=== PATIENT | male | born 1975 | race Caucasian/White ===

== ENCOUNTER 2017-12-04 17:30 | Emergency (ER) | payer MEDICAID, SELFPAY ==
--- NOTE | 2017-12-04 17:47 | XR_ITS ---
XR knee RT 3V Ordering Physician: Alix Cortez Patient Age: 42 years: Male HISTORY: ITS.REASON: PAIN TECHNIQUE: 3 views right knee COMPARISON :May 2016 FINDINGS Degenerative changes evident at the right knee with tricompartmental marginal osteophytes most evident about the medial joint margin. Minimal spurring about the patellofemoral joint and lateral compartment. I Also some hypertrophic spurring inferior patellofemoral joint on lateral view.- From both the patella and femur Joint space fairly well maintained with only Borderline narrowing medial compartment on this nonweightbearing film. No fracture evident. Joint effusion evident at suprapatellar bursa. Moderate size. IMPRESSION: No fracture. Moderate size joint effusion suprapatella bursa. Developing degenerative arthritic changes right knee
[2017-12-04 17:51] VITALS: BP 166/102; PULSE 77; RESP 20; TEMP 36.9; O2SAT 98; BMI 34.2
--- NOTE | 2017-12-04 18:36 | HMH.EDUTC ---
[facility] – [place] Disposition Clinical Impression: Knee pain, acute Qualifiers: Laterality: right Qualified Code(s): M25.561 - Pain in right knee Disposition: Home, Self-Care Condition on Discharge: Good Instructions: DI for Acute Pain -- Adult Additional Instructions: Tylenol as needed for pain Keep splint in place Ice 20 minutes removed may repeat for comfort Follow-up with primary care Leave splint in place until seen by ortho Take Naprosyn and prednisone on a full stomach Prescriptions: Naproxen 250 mg PO Q12 PRN 7 Days #14 tab PRN Reason: Breakthru Moderate Pain predniSONE [Deltasone 20mg tablet] 20 mg PO BID 5 Days #10 tab Referrals: Tito Núñez MD [Primary Care Provider] - Satish Romero MD [Staff Physician] - 12/05/17 Time of Disposition: 18:50 Medical Decision Making - Loco Inquiry Pt receiving controlled substance: No Vital Signs: 12/04/17 17:51 Temperature 98.4 F Temperature Source Temporal Artery Scan Pulse Rate [Brachial] 77 Respiratory Rate 20 Blood Pressure [Right Arm] 166/102 Blood Pressure Mean [Right Arm] 123 Blood Pressure Source [Right Arm] Automatic Cuff Blood Pressure Position [Right Arm] Sitting 02 Sat by Pulse Oximetry 98 Oxygen Delivery Method Room Air Orders (Tests/Meds): ORDERS Category Date Time Status XR knee RT 3V Stat Exams 12/04/17 17:47 Taken [facility] [place] HPI - General Chief complaint: PAIN Stated complaint: R leg pain Time Seen by Provider: 12/04/17 18:37 Mode of Arrival: Ambulatory Source of Information: Patient Limitations: No Limitations Description of Symptoms (Recalled from Triage Doc. by RN): PAIN BEHIND RT KNEE AND SWOLLEN HEENT Symptoms (Recalled from RN notes): No Resp Symptoms (Recalled from RN notes): No Skin Symptoms (Recalled from RN notes): No MS Symptoms (Recalled from RN notes): Yes Functional Status (Recalled from RN notes): NA - History of Present Illness Provider Complaint: 2-year-old male presents today for right knee pain. Patient reports no injury. Patient states he was standing outside talking with neighbors and when in went to bed and at 2:00 woke up with knee pain and unable to bend knee - Related Data Previous Rx's Medication Instructions Recorded Naproxen 250 mg PO Q12 PRN 7 Days #14 tab 12/04/17 predniSONE [Deltasone 20mg 20 mg PO BID 5 Days #10 tab 12/04/17 tablet] Allergies Allergy/AdvReac Type Severity Reaction Status Date / Time No Known Allergies Allergy Unverified 09/12/17 14:49 - Worker's Comp Is this a Worker's Comp case?: No [facility] History I have reviewed the patient's past medical history: Yes - Social History Alcohol Intake: never - Psychiatric History Expresses thoughts of harming self/others: None Suicide Plan Description: No Plan ROS Obtained: Yes All systems reviewed & no additional complaints - Constitutional Constitutional: Reports system reviewed and no additional complaints, except as docu, Denies chills, Denies fever(s), Denies weakness - Eyes Eyes: Reports system reviewed and no additional complaints, except as docu - ENT Ears, Nose, Mouth, and Throat: Reports system reviewed and no additional complaints, except as docu - Cardiovascular Cardiovascular: Reports system reviewed and no additional complaints, except as docu - Respiratory Respiratory: Yes system reviewed and no additional complaints, except as docu - Gastrointestinal Gastrointestingal: Reports: system reviewed and no additional complaints, except as docu - Musculoskeletal Musculoskeletal: Reports system reviewed and no additional complaints, except as docu, Reports as per HPI, Reports joint pain, Reports joint stiffness, Reports joint swelling - Integumentary/Breasts Skin/Breast: Reports system reviewed and no additional complaints, except as docu - Neurologic Neurologic: Reports system reviewed and no additional complaints, except as docu - Endocrine Endocrine: Reports system reviewed
--- NOTE | 2017-12-04 18:40 | ED_ITS ---
[facility] [place] Clinical Impression: Knee pain, acute Qualifiers: Laterality: right Qualified Code(s): M25.561 - Pain in right knee Disposition: Home, Self-Care Condition on Discharge: Good Instructions: DI for Acute Pain -- Adult Additional Instructions: Tylenol as needed for pain Keep splint in place Ice 20 minutes removed may repeat for comfort Follow-up with primary care Leave splint in place until seen by ortho Take Naprosyn and prednisone on a full stomach Prescriptions: Naproxen 250 mg PO Q12 PRN 7 Days #14 tab PRN Reason: Breakthru Moderate Pain predniSONE [Deltasone 20mg tablet] 20 mg PO BID 5 Days #10 tab Referrals: Tito Núñez MD [Primary Care Provider] - Satish Romero MD [Staff Physician] - 12/05/17 Time of Disposition: 18:50 Medical Decision Making - Loco Inquiry Pt receiving controlled substance: No Vital Signs: 12/04/17 17:51 Temperature 98.4 F Temperature Source Temporal Artery Scan Pulse Rate [Brachial] 77 Respiratory Rate 20 Blood Pressure [Right Arm] 166/102 Blood Pressure Mean [Right Arm] 123 Blood Pressure Source [Right Arm] Automatic Cuff Blood Pressure Position [Right Arm] Sitting 02 Sat by Pulse Oximetry 98 Oxygen Delivery Method Room Air Orders (Tests/Meds): ORDERS Category Date Time Status XR knee RT 3V Stat Exams 12/04/17 17:47 Taken [facility] [place] - General Chief complaint: PAIN Stated complaint: R leg pain Time Seen by Provider: 12/04/17 18:37 Mode of Arrival: Ambulatory Source of Information: Patient Limitations: No Limitations Description of Symptoms (Recalled from Triage Doc. by RN): PAIN BEHIND RT KNEE AND SWOLLEN HEENT Symptoms (Recalled from RN notes): No Resp Symptoms (Recalled from RN notes): No Skin Symptoms (Recalled from RN notes): No MS Symptoms (Recalled from RN notes): Yes Functional Status (Recalled from RN notes): NA - History of Present Illness Provider Complaint: 2-year-old male presents today for right knee pain. Patient reports no injury. Patient states he was standing outside talking with neighbors and when in went to bed and at 2:00 woke up with knee pain and unable to bend knee - Related Data Previous Rx's Medication Instructions Recorded Naproxen 250 mg PO Q12 PRN 7 Days #14 tab 12/04/17 predniSONE [Deltasone 20mg 20 mg PO BID 5 Days #10 tab 12/04/17 tablet] Allergies Allergy/AdvReac Type Severity Reaction Status Date / Time No Known Allergies Allergy Unverified 09/12/17 14:49 - Worker's Comp Is this a Worker's Comp case?: No H History I have reviewed the patient's past medical history: Yes - Social History Alcohol Intake: never - Psychiatric History Expresses thoughts of harming self/others: None Suicide Plan Description: No Plan ROS Obtained: Yes All systems reviewed & no additional complaints - Constitutional Constitutional: Reports system reviewed and no additional complaints, except as docu, Denies chills, Denies fever(s), Denies weakness - Eyes Eyes: Reports system reviewed and no additional complaints, except as docu - ENT Ears, Nose, Mouth, and Throat: Reports system reviewed and no additional complaints, except as docu - Cardiovascular Cardiovascular: Reports system reviewed and no additional complaints, except
[2017-12-04 18:53] VITALS: BP 166/102; PULSE 77; RESP 20; TEMP 36.9; O2SAT 98
== END 2017-12-04 18:55 | disposition home or self-care (01) ==
PROVIDERS: Emergency Provider Nurse Practitioner Family; PCP Emergency Medicine
DX: M25.561 Pain in right knee (principal)
CPT/HCPCS: 29505; 73562; 99203

== ENCOUNTER → 2017-12-28 16:05 | Outpatient (CLI) | payer MEDICAID, SELFPAY ==
--- NOTE | 2017-12-28 16:07 | MR_ITS ---
MR knee RT wo con Ordering Physician: Satish Romero MD Patient Age: 42 years: Male HISTORY: ITS.REASON: RT knee osteoarthritis Symptoms 2 weeks. Pain inferior to patella. Swelling at knee. Unable to bend knee. Unable straighten knee. Knee instability. TECHNIQUE: Multiplanar multisequence imaging 1.5T MR Mild motion on the submitted sequences slightly degrades images COMPARISON : Plain films of the knee from 12/04/2017 FINDINGS Mild motion on the several of the submitted sequences slightly degrades image detail & resolution Medial meniscus suspect fraying and fibrillation of free margin posterior horn medial meniscus slightly truncated appearance on sagittal image 1718. Minor increased signal within the superior base of posterior body medial meniscus on coronal images. It question degenerative signal change versus minor tear here base. Equivocal feature On stepping back, with overview, there appears to be in ill-defined masslike area overlying the medial joint, there an unusual almost masslike area anterior anterior to the anterior horn medial meniscus. In fact viewing sagittal image 19 there seems to be some amorphous a decreased T1 signal & increased T2 signal (but not simple clear fluid signal) large area overlying the lateral compartment. In fact this area extends for up to nearly 3 cm height is seen on sagittal images 16, 17, coronal image 11, 10 and suspect this may be some form of a debris-filled meniscal cyst or similar process given that it blends in with the base of the anterior horn of medial meniscus.. Otherwise it could reflect some type synovial or fibro-cellular mass. Clinical correlation required. It may warrant follow-up postcontrast MRI study... Or possibly focal ultrasound may be of benefit.. Please feel free to discuss with us The cartilage at medial compartment is actually fairly well-maintained. No osteochondral defect. Lateral compartment. May be some chondral thinning anteriorly, with minimal spurring seen here far anterior aspect tibial plateau seen on sagittal images associated. With this small 9 mm cystic area, extending just anterior to this spur.. Reflecting either joint fluid or less likely small meniscal cyst The Lateral Meniscus otherwise shows no definitive surface tear only upper normal signal at its anterior base. Large joint effusion most evident at suprapatellar bursa. The. No definitive loose body is identified within this joint effusion Patellofemoral relationships appear satisfactory with cartilage fairly well maintained at patellofemoral joint. Developing tricompartmental marginal included osteophytes at patellofemoral joint. Most evident extending lateral from patella.. Slightly more evident marginal osteophytes also noted at from margins of medial and lateral compartment . ACL intact. PCL intact Small nonspecific subchondral cystic area beneath the PCL insertion. Medial collateral ligament intact. The lateral collateral ligament I believe is intact with upper normal signal at its femoral insertion. Quadriceps tendon seems to be intact as does the patellar tendon.. No fracture evident.. No bone edema. No remarkable reactive bone changes about the There is mild fluid signal overlying the patellar tendon. Could reflect p dependent fluid or versus some mild prepatellar inflammation. IMPRESSION 1. Large joint effusion 2. Tricompartmental marginal osteophytes reflecting early degenerative changes. However cartilage at medial & lateral compartment, as well as patellofemoral joint seen to be fairly well-maintained overall.: .... Marginal osteophytes about margin of patellofemoral joint, but cartilage at this joint seems to be fairly well-maintained. ..... Only note mild chondral thinning far anteriorly at lateral t
== END ==
PROVIDERS: PCP Emergency Medicine; Visit Provider Orthopaedic Surgery
DX: M17.11 Unilateral primary osteoarthritis, right knee (principal)
CPT/HCPCS: 73721

== ENCOUNTER 2021-01-07 09:07 | Emergency (ER) | payer OTHER, SELFPAY ==
--- NOTE | 2021-01-07 09:20 | XR_ITS ---
PROCEDURE: XR KNEE RT 3V CLINICAL INDICATION: injury Posttraumatic pain COMPARISON: CR [id number] KNEE-3 VIEWS-RT from 06/18/2016 CR [id number] XR knee RT 3V from 12/04/2017 CR XR KNEE RT 3V from 06/30/2019 FINDINGS: No fracture or dislocation. No lytic or blastic change. There is normal mineralization. There are tricompartmental osteoarthritic changes [id number] in nature. 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 Other findings:None. IMPRESSION: Osteoarthritis with knee joint effusion Dictated by: Kiel Ji MD 01/07/2021 10:15 Kiel Ji MD in [place] 01/07/2021 10:15
--- NOTE | 2021-01-07 09:21 | PC.NURSE ---
radiology notified of xray order
[2021-01-07 09:23] VITALS: BP 171/90; PULSE 82; RESP 16; TEMP 36.7; O2SAT 98; BMI 30.3
--- NOTE | 2021-01-07 10:32 | HMH.EDUTC ---
[facility] [place] Clinical Impression: Instability of right knee joint Strain of right knee Qualifiers: Encounter type: initial encounter Qualified Code(s): S86.911A - Strain of unspecified muscle(s) and tendon(s) at lower leg level, right leg, initial encounter Right knee pain Qualifiers: Chronicity: acute Qualified Code(s): M25.561 - Pain in right knee Disposition: Home, Self-Care Condition on Discharge: Good Instructions: How to Use Crutches, Knee Sprain, DI for Knee Sprain, How to Use a Knee Immobilizer Additional Instructions: Rest the extremity, apply ice for 15 minutes as tolerated three or four times per day, Wear the jordan wrap for compression, Elevate the extremity as tolerated while you are resting. Take ibuprofen for pain. I sent in a prescription to your pharmacy. Follow up with Dr. Rojo (orthopedics). Sometimes there can be fractures that don't show up well on the first set of x-rays. So, you should follow up if you continue to have symptoms. I put in a referral but you need to call his office and schedule an appointment. Follow up with your regular doctor. GO TO THE ER FOR ANY WORSENING SYMPTOMS Prescriptions: Ibuprofen [Ibuprofen 600mg Tablet] 600 mg PO Q6HP PRN #30 tab PRN Reason: Mild Pain Transmission Status: Received by [id number] Referrals: Saeid Goldberg MD [Primary Care Provider] - Brandon Rojo MD [Staff Physician] - Time of Disposition: 10:40 Medical Decision Making - Medical Records Medical records reviewed: No: I reviewed the patient's medical records. - Loco Inquiry Pt receiving controlled substance: No Vital Signs: 01/07/21 09:23 01/07/21 10:40 Temperature 98.1 F 98.1 F Temperature Source Oral Oral Pulse Rate 82 Pulse Rate [Right Radial] 82 Respiratory Rate 16 16 Blood Pressure 171/90 H Blood Pressure [Right Arm] 171/90 H Blood Pressure Mean [Right Arm] 117 02 Sat by Pulse Oximetry 98 Oxygen Delivery Method Room Air Room Air Orders (Tests/Meds): ED MEDICATIONS Discontinued Medications Generic Name Dose Route Start Last Admin Trade Name Freq PRN Reason Stop Dose Admin Ibuprofen 800 mg 01/07/21 10:24 01/07/21 10:25 Ibuprofen 400 Mg Tablet PO 01/07/21 10:25 800 mg ONCE ONE Administration - Radiology Data #1 Image(s): Knee Image Reviewed: Yes I reviewed the patient's radiology results Preliminary Findings: Abnormal, No Fracture Seen PROCEDURE: XR KNEE RT 3V CLINICAL INDICATION: injury Posttraumatic pain COMPARISON: CR [id number] KNEE-3 VIEWS-RT from 06/18/2016 CR [id number] XR knee RT 3V from 12/04/2017 CR XR KNEE RT 3V from 06/30/2019 FINDINGS: No fracture or dislocation. No lytic or blastic change. There is normal mineralization. There are tricompartmental osteoarthritic changes [id number] in nature. 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 Other findings:None. IMPRESSION: Osteoarthritis with knee joint effusion Dictated by: Kiel Ji MD 01/07/2021 10:15 Kiel Ji MD in [place] 01/07/2021 10:15 [facility] [place] - General Stated complaint: [id number] right knee pain Time Seen by Provider: 01/07/21 09:30 Mode of Arrival: Wheelchair Source of Information: Patient Limitations: Physical Limitations Description of Symptoms (Recalled from Triage Doc. 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 The pain is worse when he walks or be
[2021-01-07 10:40] VITALS: BP 171/90; PULSE 82; RESP 16; TEMP 36.7; O2SAT 98
== END 2021-01-07 10:43 | disposition home or self-care (01) ==
PROVIDERS: Emergency Provider Nurse Practitioner Family; PCP Family Medicine
DX: S86.911A Strain of unspecified muscle(s) and tendon(s) at lower leg level, right leg, initial encounter (principal); X50.1XXA Overexertion from prolonged static or awkward postures, initial encounter; Y92.73 Farm field as the place of occurrence of the external cause
CPT/HCPCS: 29505; 73562; 99202; G0463

== ENCOUNTER → 2021-06-08 17:59 | Outpatient (CLI) | payer OTHER, SELFPAY ==
[2021-06-08 18:55] LABS: Basophils # 0.1 K/mm3 (0-0.2); Basophils % 0.8 % (0.1-2.0); Eosinophils # 0.1 K/mm3 (0.0-0.4); Eosinophils % 1.3 % (0.1-12.0); Hematocrit 49.5 % (42.0-52.0); Lymphocytes # 1.4 K/mm3 (0.7-4.5); Lymphocytes % 22.8 % (10-50); Mean Corpuscular HGB Conc 32.4 g/dL (31.8-35.4); Mean Corpuscular Hemoglobin 28.9 pg (27.0-31.2); Mean Corpuscular Volume 89.4 fl (80-94); Mean Platelet Volume 9.9 fl (7.4-10.4); Monocytes # 0.5 K/mm3 (0.1-1.0); Neutrophils # 4.3 K/mm3 (1.8-7.8); Neutrophils % 67.2 % (37.0-80.0); Platelet Count 217 K/mm3 (142-424); Red Blood Count 5.53 M/mm3 (4.60-6.20); White Blood Count 6.4 K/mm3 (4.8-10.8)
[2021-06-08 18:57] LABS: Alanine Aminotransferase 29 U/L (12-78); Albumin Level 4.4 g/dl (3.5-5.0); Albumin/Globulin Ratio 1.5 (1.1-1.8); Alkaline Phosphatase 71 U/L (38-126); Anion Gap 15.7 mEq/L (5-15); Aspartate Amino Transferase 30 U/L (17-59); Bilirubin,Total 0.4 mg/dl (0.2-1.3); Blood Urea Nitrogen 14 mg/dl (9-20); Calcium 9.5 mg/dl (8.4-10.2); Carbon Dioxide 26 mmol/L (22.0-30.0); Chloride 102 mmol/L (98-107); Chol/HDL Ratio 5.8 (1-3.5); Cholesterol 187 mg/dl (140-200); Estimated Glomerular Filt Rate 80 ml/min (>60); GFR (African American) 97 ML/MIN (>60); Glucose 97 mg/dl (74-100); HDL Cholesterol 32 mg/dl (40-60); Potassium 4.7 mmoL/L (3.5-5.1); Sodium 139 mmol/L (136-145); Total Protein,Serum 7.4 g/dl (6.3-8.2); Triglycerides 220 mg/dl (30-150); Uric Acid 8.2 mg/dl (3.5-8.5); VLDL Cholesterol 44 mg/dL (0-40)
[2021-06-08 19:08] LABS: Direct LDL Cholesterol 106.67 mg/dL (100-129)
[2021-06-08 19:27] LABS: Thyroid Stimulating Hormone 0.78 uIU/mL (0.465-4.68)
[2021-06-08 19:50] LABS: Free T4 (Free Thyroxine) 1.04 ng/dl (0.78-2.19)
[2021-06-08 22:21] LABS: Erythrocyte Sedimentation Rate 19 mm/hr (0-15)
== END ==
PROVIDERS: Visit Provider Emergency Medicine
DX: M10.9 Gout, unspecified (principal); E55.9 Vitamin D deficiency, unspecified
CPT/HCPCS: 80053; 80061; 82306; 84439; 84443; 84550; 85025; 85651

== ENCOUNTER → 2021-06-25 10:19 | Outpatient (CLI) | payer OTHER, SELFPAY ==
--- NOTE | 2021-06-25 10:29 | XR_ITS ---
PROCEDURE: XR KNEE RT 4V CLINICAL INDICATION: RT knee pain COMPARISON: CR [id number] KNEE-3 VIEWS-RT from 06/18/2016 CR [id number] XR knee RT 3V from 12/04/2017 CR XR KNEE RT 3V from 06/30/2019 CR XR KNEE RT 3V from 01/07/2021 FINDINGS: No fracture or dislocation. No lytic or blastic change. There is normal mineralization. There are mild osteoarthritic changes of the medial compartment and patellofemoral joint with decrease in joint space and osteophyte formation. There is a small suprapatellar effusion. Other findings:None. IMPRESSION: Mild osteoarthritis with knee joint effusion overall not significantly changed. Dictated by: Kiel Ji MD 06/25/2021 14:22 Kiel Ji MD in [place] 06/25/2021 14:22
== END ==
PROVIDERS: PCP Emergency Medicine; Visit Provider Orthopaedic Surgery
DX: M25.561 Pain in right knee (principal)
CPT/HCPCS: 73564

== ENCOUNTER → 2022-09-19 14:15 | Outpatient (CLI) | payer OTHER, SELFPAY ==
[2022-09-19 16:59] LABS: Basophils # 0.1 K/mm3 (0-0.2); Basophils % 1.4 % (0.1-2.0); Eosinophils # 0.1 K/mm3 (0.0-0.4); Eosinophils % 1.3 % (0.1-12.0); Hematocrit 50.9 % (42.0-52.0); Hemoglobin 17.2 g/dL (14.1-18.0); Lymphocytes # 1.7 K/mm3 (0.7-4.5); Lymphocytes % 22.1 % (10-50); Mean Corpuscular HGB Conc 33.8 g/dL (31.8-35.4); Mean Corpuscular Hemoglobin 29.2 pg (27.0-31.2); Mean Corpuscular Volume 86.4 fl (80-94); Mean Platelet Volume 9.4 fl (7.4-10.4); Monocytes # 0.5 K/mm3 (0.1-1.0); Monocytes % 6.1 % (1.7-9.3); Neutrophils # 5.3 K/mm3 (1.8-7.8); Neutrophils % 69.2 % (37.0-80.0); Platelet Count 215 K/mm3 (142-424); Red Blood Count 5.89 M/mm3 (4.60-6.20); Red Cell Distribution Width 13.4 % (11.5-17.5); White Blood Count 7.7 K/mm3 (4.8-10.8)
[2022-09-19 17:05] LABS: Alanine Aminotransferase 71 U/L (12-78); Albumin Level 4.6 g/dl (3.5-5.0); Albumin/Globulin Ratio 1.8 (1.1-1.8); Alkaline Phosphatase 88 U/L (38-126); Anion Gap 16.2 mEq/L (5-15); Aspartate Amino Transferase 49 U/L (17-59); Bilirubin,Total 0.3 mg/dl (0.2-1.3); Blood Urea Nitrogen 12 mg/dl (9-20); Calcium 9.9 mg/dl (8.4-10.2); Carbon Dioxide 22 mmol/L (22.0-30.0); Chloride 104 mmol/L (98-107); Chol/HDL Ratio 5.5 (1-3.5); Cholesterol 169 mg/dl (140-200); Estimated Glomerular Filt Rate 71 ml/min (>60); GFR (African American) 86 ML/MIN (>60); Globulin 2.6 g/dL (1.3-3.2); Glucose 162 mg/dl (74-100); HDL Cholesterol 31 mg/dl (40-60); Potassium 4.2 mmoL/L (3.5-5.1); Sodium 138 mmol/L (136-145); Total Protein,Serum 7.2 g/dl (6.3-8.2); Triglycerides 347 mg/dl (30-150); Uric Acid 6.1 mg/dl (3.5-8.5); VLDL Cholesterol 69 mg/dL (0-40)
[2022-09-19 17:15] LABS: Direct LDL Cholesterol 84.03 mg/dL (100-129)
[2022-09-19 17:35] LABS: Thyroid Stimulating Hormone 1.06 uIU/mL (0.465-4.68)
== END ==
PROVIDERS: PCP Emergency Medicine; Visit Provider Emergency Medicine
DX: M10.9 Gout, unspecified (principal)
CPT/HCPCS: 80053; 80061; 84443; 84550; 85025

== ENCOUNTER 2023-10-06 19:08 | Outpatient (CLI) | payer OTHER, SELFPAY ==
[2023-10-06 18:31] LABS: Basophils # 0.1 K/mm3 (0-0.2); Basophils % 0.8 % (0.1-2.0); Eosinophils # 0.2 K/mm3 (0.0-0.4); Eosinophils % 2.2 % (0.1-12.0); Hematocrit 49.8 % (42.0-52.0); Lymphocytes # 1.7 K/mm3 (0.7-4.5); Mean Corpuscular HGB Conc 34.2 g/dL (31.8-35.4); Mean Corpuscular Hemoglobin 29.4 pg (27.0-31.2); Mean Platelet Volume 9.7 fl (7.4-10.4); Monocytes # 0.5 K/mm3 (0.1-1.0); Monocytes % 7.8 % (1.7-9.3); Neutrophils # 4.4 K/mm3 (1.8-7.8); Neutrophils % 64.2 % (37.0-80.0); Platelet Count 171 K/mm3 (142-424); Red Blood Count 5.79 M/mm3 (4.60-6.20); Red Cell Distribution Width 13.6 % (11.5-17.5); White Blood Count 6.9 K/mm3 (4.8-10.8)
[2023-10-06 18:42] LABS: Chloride 103 mmol/L (98-107); Potassium 4.6 mmoL/L (3.5-5.1); Sodium 139 mmol/L (136-145)
[2023-10-06 18:44] LABS: Blood Urea Nitrogen 12 mg/dl (9-20)
[2023-10-06 18:45] LABS: Alanine Aminotransferase 66 U/L (12-78); Albumin Level 4.3 g/dl (3.5-5.0); Albumin/Globulin Ratio 1.6 (1.1-1.8); Alkaline Phosphatase 100 U/L (38-126); Anion Gap 11.6 mEq/L (5-15); Aspartate Amino Transferase 50 U/L (17-59); Bilirubin,Total 0.4 mg/dl (0.2-1.3); Calcium 8.9 mg/dl (8.4-10.2); Carbon Dioxide 29 mmol/L (22.0-30.0); Cholesterol 169 mg/dl (140-200); Estimated Glomerular Filt Rate 64 ml/min (>60); GFR (African American) 78 ML/MIN (>60); Globulin 2.7 g/dL (1.3-3.2); Glucose 122 mg/dl (74-100); Triglycerides 238 mg/dl (30-150); VLDL Cholesterol 48 mg/dL (0-40)
[2023-10-06 18:46] LABS: Chol/HDL Ratio 5.3 (1-3.5); HDL Cholesterol 32 mg/dl (40-60)
[2023-10-06 18:57] LABS: Direct LDL Cholesterol 97.84 mg/dL (100-129)
[2023-10-06 19:15] LABS: Thyroid Stimulating Hormone 0.76 uIU/mL (0.465-4.68)
[2023-10-06 20:38] LABS: 25-OH Vitamin D, Total 32.4 ng/mL (30-100)
[2023-10-06 22:28] LABS: Prostate Specific Ag Screen 0.4 ng/ml (0.0-4.0)
== END 2023-10-06 23:59 ==
LOC: LAB.DROPOF 19:08
PROVIDERS: PCP Nurse Practitioner Family; Visit Provider Nurse Practitioner Family
DX: R53.83 Other fatigue (principal); M10.9 Gout, unspecified; E66.9 Obesity, unspecified; Z68.35 Body mass index [BMI] 35.0-35.9, adult; Z12.5 Encounter for screening for malignant neoplasm of prostate
CPT/HCPCS: 80053; 80061; 82306; 84443; 85025; G0103

== ENCOUNTER 2024-10-08 15:32 | Outpatient (CLI) | payer OTHER, SELFPAY ==
[2024-10-08 19:04] LABS: Alanine Aminotransferase 59 U/L (12-78); Albumin Level 4.5 g/dl (3.5-5.0); Albumin/Globulin Ratio 1.8 (1.1-1.8); Alkaline Phosphatase 102 U/L (38-126); Anion Gap 15.2 mEq/L (5-15); Aspartate Amino Transferase 50 U/L (17-59); Bilirubin,Total 0.3 mg/dl (0.2-1.3); Blood Urea Nitrogen 15 mg/dl (9-20); Carbon Dioxide 23 mmol/L (22.0-30.0); Chloride 103 mmol/L (98-107); Chol/HDL Ratio 6.1 (1-3.5); Cholesterol 171 mg/dl (140-200); Estimated Glomerular Filt Rate 79 ml/min (>60); GFR (African American) 95 ML/MIN (>60); Globulin 2.5 g/dL (1.3-3.2); Glucose 135 mg/dl (74-100); HDL Cholesterol 28 mg/dl (40-60); Potassium 4.2 mmoL/L (3.5-5.1); Sodium 137 mmol/L (136-145); Triglycerides 283 mg/dl (30-150); Uric Acid 5.7 mg/dl (3.5-8.5); VLDL Cholesterol 57 mg/dL (0-40)
[2024-10-08 19:16] LABS: Direct LDL Cholesterol 99.26 mg/dL (100-129)
== END 2024-10-08 23:59 | disposition home or self-care (01) ==
LOC: LAB.DROPOF 10-09 14:58
PROVIDERS: PCP Family Medicine; Visit Provider Family Medicine
DX: M10.9 Gout, unspecified (principal); I10 Essential (primary) hypertension; E78.5 Hyperlipidemia, unspecified
CPT/HCPCS: 80053; 80061; 84550

== ENCOUNTER 2024-12-23 10:05 | Outpatient (CLI) | payer OTHER, SELFPAY ==
[2024-12-23 20:53] LABS: Blood Urea Nitrogen 14 mg/dl (9-20); Carbon Dioxide 24 mmol/L (22.0-30.0); Estimated Glomerular Filt Rate 58 ml/min (>60); GFR (African American) 70 ML/MIN (>60)
[2024-12-23 20:54] LABS: Glucose 127 mg/dl (74-100)
[2024-12-23 20:58] LABS: Anion Gap 13.3 mEq/L (5-15); Chloride 105 mmol/L (98-107); Potassium 4.3 mmoL/L (3.5-5.1); Sodium 138 mmol/L (136-145)
[2024-12-23 21:01] LABS: Calcium 9.2 mg/dl (8.4-10.2)
== END 2024-12-23 23:59 | disposition home or self-care (01) ==
LOC: LAB.DROPOF 12-24 13:27
PROVIDERS: PCP Family Medicine; Visit Provider Family Medicine
DX: I10 Essential (primary) hypertension (principal)
CPT/HCPCS: 80048